=== PATIENT | male | born 1980 | race Caucasian/White ===

== ENCOUNTER 2018-05-10 23:36 | Inpatient (IN) ==
[2018-05-11] MEDS ORDERED: VANCOMYCIN INJ 1,000 MG in SODIUM CHLORIDE 0.9% 250 ML IV STA (00:31)
[2018-05-11] MEDS ORDERED: SODIUM CHLORIDE 0.9% 1,000 ML IV STA (00:31)
[2018-05-11 01:21] LABS: Basophils % 0.2 % (0.0-0.8); Eosinophils # 0.1 10*3/uL (0.0-0.87); Eosinophils % 0.4 % (0.00-10.9); Hematocrit 33.2 VOL% (42.0-52.0); Hemoglobin 10.8 GM/DL (14.0-18.0); Immature Granulocytes % 0.7 %; Lymphocytes # 1.7 10*3/uL (1.4-4.0); Lymphocytes % 12.2 % (21.2-54.2); Mean Corpuscular HGB Conc 32.5 GM/DL (32-36); Mean Corpuscular Hemoglobin 29 PG (27-34); Mean Corpuscular Volume 87.8 FL (87-102); Mean Platelet Volume 9.7 FL (9.6-12.0); Monocytes # 0.6 10*3/uL (0.11-0.8); Monocytes % 3.9 % (1.7-12.7); Neutrophils # 11.8 10*3/uL (1.4-7.4); Neutrophils % 82.6 % (38.7-73.9); Platelet Count 278 T/CUMM (130-400); Red Blood Count 3.78 MC/CUMM (3.8-5.5); Red Cell Distribution Width 16.1 % (9.3-17.3); White Blood Count 14.2 T/CUMM (4-12)
[2018-05-11 01:26] LABS: Alanine Aminotransferase 16 U/L (16-61); Alkaline Phosphatase 135 U/L (45-117); Aspartate Amino Transferase 15 U/L (0-37); Bilirubin,Total < 0.39 MG/DL (0.2-1.0); Blood Urea Nitrogen 8 MG/DL (7-18); Calcium 9.2 MG/DL (8.5-10.1); Glucose 434 MG/DL (74-106); Lactic Acid 2.4 MMOL/L (0.4-2.0); Osmolality,Calculated 280.5 MOS/KG (273-304); Sodium 132 MMOL/L (136-145); Total Protein 8.5 G/DL (6.4-8.3)
[2018-05-11 01:30] LABS: Potassium 2.2 MMOL/L (3.5-5.1)
[2018-05-11] MEDS ORDERED: POTASSIUM CHLORIDE 20 MEQ TABLET PO STA (01:33)
[2018-05-11] MEDS ORDERED: POTASSIUM CHLORIDE RIDER 10 MEQ in PREMIX 1 EACH IV ONE (01:33)
[2018-05-11] MEDS ORDERED: INSULIN REGULAR 100 UNIT/ML IV STA (01:36)
[2018-05-11] MEDS ORDERED: ONDANSETRON 4 MG/2 ML VIAL IV STA (01:36)
[2018-05-11] MEDS ORDERED: HYDROmorphone 2 MG/1 ML VIAL IV ONE (01:36)
[2018-05-11] MEDS ORDERED: SODIUM CHLORIDE 0.9% 1,550 ML IV ONE (01:37)
[2018-05-11 01:57] LABS: Apearance,Urine CLEAR (Clear); Bilirubin,Urine Negative (Negative); Blood, Urine Moderate mg/dL (Negative); Glucose,Urine (UA) >=500 mg/dL (Negative); Ketones,Urine Negative (Negative); Nitrite,Urine Negative (Negative); Protein,Urine 100 MG/DL; RBC,Urine 4 /HPF (0-4); Urine Color Straw (Yellow); Urine Specific Gravity 1.013 (1.001-1.035); Urine Urobilinogen < 2.0 EU/DL (0.2-1.0); WBC,Urine 14 /HPF (0-6)
[2018-05-11] MEDS ORDERED: SODIUM CHLORIDE 0.9% 1,000 ML IV SCH (02:00)
[2018-05-11 02:04] LABS: INR 0.9; PT Patient Result 9.4 SECS; Partial Thromboplastin Time 25.8 SECS (0-40)
[2018-05-11] MEDS ORDERED: DEXTROSE 50% 25 GM/50 ML VIAL IV PRN (02:11)
[2018-05-11] MEDS ORDERED: GLUCAGON 1 MG VIAL IM PRN ×2 (02:11)
[2018-05-11] MEDS ORDERED: ONDANSETRON 4 MG/2 ML VIAL IV PRN (02:11)
[2018-05-11 02:13] LABS: Barbiturates Screen,Urine Negative (Negative); Benzodiazepines Screen,Urine Negative (Negative); Cannabinoid Screen,Urine Positive (Negative); Opiate Screen,Urine Positive (Negative); Phencyclidine Screen,Urine Negative (Negative)
[2018-05-11] MEDS: fentaNYL 50 MCG/HR PATCH TRANSDERM SCH (05:10)
[2018-05-11] MEDS: SODIUM CHLORIDE 0.9% 1,000 ML IV SCH ×2 (05:12→15:08)
[2018-05-11] MEDS: HYDROmorphone 2 MG/1 ML VIAL IV PRN ×4 (05:12→18:58)
[2018-05-11 07:32] LABS: Albumin 2.2 G/DL (3.4-5.0); Bilirubin,Total 0.5 MG/DL (0.2-1.0); Calcium 7.7 MG/DL (8.5-10.1); Osmolality,Calculated 280.7 MOS/KG (273-304); Total Protein 5.7 G/DL (6.4-8.3)
[2018-05-11 07:37] LABS: Potassium 2.5 MMOL/L (3.5-5.1)
[2018-05-11] MEDS: DRONABINOL 2.5 MG CAPSULE PO SCH ×3 (09:08→17:30)
[2018-05-11] MEDS: POTASSIUM CHLORIDE 20 MEQ TABLET PO PRN ×4 (09:09→19:22)
[2018-05-11] MEDS: HYDROmorphone 2 MG TABLET PO SCH ×2 (09:09→21:56)
[2018-05-11] MEDS: INSULIN REGULAR 100 UNIT/ML SUBCUT SCH ×4 (09:10→21:56)
[2018-05-11] MEDS: ENOXAPARIN 40 MG/0.4 ML SYRINGE SUBCUT SCH (09:10)
[2018-05-11 10:44] LABS: Basophils % 0.1 % (0.0-0.8); Eosinophils % 0.4 % (0.00-10.9); Hematocrit 23.3 VOL% (42.0-52.0); Immature Granulocytes % 0.7 %; Immature Granulocytes Absolute 0.07 #; Lymphocytes # 1.5 10*3/uL (1.4-4.0); Lymphocytes % 13.6 % (21.2-54.2); Mean Corpuscular HGB Conc 34.3 GM/DL (32-36); Mean Corpuscular Hemoglobin 29 PG (27-34); Mean Corpuscular Volume 85.3 FL (87-102); Mean Platelet Volume 10.2 FL (9.6-12.0); Monocytes # 0.6 10*3/uL (0.11-0.8); Monocytes % 5.5 % (1.7-12.7); Neutrophils # 8.6 10*3/uL (1.4-7.4); Neutrophils % 79.7 % (38.7-73.9); Platelet Count 179 T/CUMM (130-400); Red Blood Count 2.73 MC/CUMM (3.8-5.5); Red Cell Distribution Width 16.3 % (9.3-17.3); White Blood Count 10.7 T/CUMM (4-12)
[2018-05-11] MEDS: LOSARTAN 50 MG TABLET PO SCH (11:37)
[2018-05-11] MEDS: VANCOMYCIN INJ 750 MG in SODIUM CHLORIDE 0.9% 250 ML IV SCH (15:14)
[2018-05-11] MEDS ORDERED: INSULIN GLARGINE 100 UNIT/ML SUBCUT SCH (21:00)
[2018-05-12 01:59] LABS: Basophils % 0.5 % (0.0-0.8); Eosinophils # 0.1 10*3/uL (0.0-0.87); Eosinophils % 0.6 % (0.00-10.9); Hematocrit 22.7 VOL% (42.0-52.0); Hemoglobin 7.3 GM/DL (14.0-18.0); Immature Granulocytes % 0.5 %; Immature Granulocytes Absolute 0.04 #; Lymphocytes % 26.1 % (21.2-54.2); Mean Corpuscular HGB Conc 32.2 GM/DL (32-36); Mean Corpuscular Hemoglobin 28 PG (27-34); Mean Corpuscular Volume 87.6 FL (87-102); Mean Platelet Volume 9.9 FL (9.6-12.0); Monocytes # 0.5 10*3/uL (0.11-0.8); Neutrophils # 5.2 10*3/uL (1.4-7.4); Neutrophils % 66.3 % (38.7-73.9); Platelet Count 169 T/CUMM (130-400); Red Blood Count 2.59 MC/CUMM (3.8-5.5); Red Cell Distribution Width 16.4 % (9.3-17.3); White Blood Count 7.8 T/CUMM (4-12)
[2018-05-12] MEDS: SODIUM CHLORIDE 0.9% 1,000 ML IV SCH ×3 (02:01→17:53)
[2018-05-12] MEDS: HYDROmorphone 2 MG/1 ML VIAL IV PRN ×5 (02:02→19:54)
[2018-05-12] MEDS: VANCOMYCIN INJ 750 MG in SODIUM CHLORIDE 0.9% 250 ML IV SCH ×3 (02:02→21:50)
[2018-05-12 02:13] LABS: Calcium 7.5 MG/DL (8.5-10.1); Osmolality,Calculated 279.4 MOS/KG (273-304); Potassium 2.9 MMOL/L (3.5-5.1)
[2018-05-12] MEDS ORDERED: POTASSIUM CHLORIDE RIDER 10 MEQ in PREMIX 1 EACH IV ONE (04:28)
[2018-05-12] MEDS ORDERED: POTASSIUM CHLORIDE 20 MEQ TABLET PO ONE (05:00)
[2018-05-12] MEDS: INSULIN REGULAR 100 UNIT/ML SUBCUT SCH ×4 (08:28→20:00)
[2018-05-12] MEDS: HYDROmorphone 2 MG TABLET PO SCH ×2 (08:28→21:47)
[2018-05-12] MEDS: DRONABINOL 2.5 MG CAPSULE PO SCH ×3 (08:28→17:50)
[2018-05-12] MEDS: ENOXAPARIN 40 MG/0.4 ML SYRINGE SUBCUT SCH (08:29)
[2018-05-12] MEDS: LOSARTAN 50 MG TABLET PO SCH (08:29)
[2018-05-12] MEDS: POTASSIUM CHLORIDE 20 MEQ TABLET PO PRN ×3 (08:34→19:53)
[2018-05-12] MEDS: CIPROFLOXACIN 500 MG TABLET PO SCH ×2 (13:14→20:00)
[2018-05-12] MEDS: INSULIN GLARGINE 100 UNIT/ML SUBCUT SCH (20:00)
[2018-05-13] MEDS: POTASSIUM CHLORIDE 20 MEQ TABLET PO PRN ×4 (00:01→15:24)
[2018-05-13] MEDS: HYDROmorphone 2 MG/1 ML VIAL IV PRN ×6 (00:42→21:59)
[2018-05-13 05:22] LABS: Basophils % 0.3 % (0.0-0.8); Eosinophils % 0.6 % (0.00-10.9); Hematocrit 23.9 VOL% (42.0-52.0); Hemoglobin 7.6 GM/DL (14.0-18.0); Immature Granulocytes % 0.5 %; Immature Granulocytes Absolute 0.03 #; Lymphocytes # 1.7 10*3/uL (1.4-4.0); Lymphocytes % 25.8 % (21.2-54.2); Mean Corpuscular HGB Conc 31.8 GM/DL (32-36); Mean Corpuscular Hemoglobin 28 PG (27-34); Mean Corpuscular Volume 89.2 FL (87-102); Mean Platelet Volume 10.1 FL (9.6-12.0); Monocytes # 0.5 10*3/uL (0.11-0.8); Monocytes % 7.7 % (1.7-12.7); Neutrophils # 4.2 10*3/uL (1.4-7.4); Neutrophils % 65.1 % (38.7-73.9); Platelet Count 187 T/CUMM (130-400); Red Blood Count 2.68 MC/CUMM (3.8-5.5); Red Cell Distribution Width 16.6 % (9.3-17.3); White Blood Count 6.4 T/CUMM (4-12)
[2018-05-13 05:46] LABS: Calcium 7.9 MG/DL (8.5-10.1); Osmolality,Calculated 275.4 MOS/KG (273-304); Potassium 3.4 MMOL/L (3.5-5.1)
[2018-05-13] MEDS: VANCOMYCIN INJ 750 MG in SODIUM CHLORIDE 0.9% 250 ML IV SCH ×3 (05:51→21:58)
[2018-05-13] MEDS: INSULIN REGULAR 100 UNIT/ML SUBCUT SCH ×4 (07:50→20:18)
[2018-05-13] MEDS: ENOXAPARIN 40 MG/0.4 ML SYRINGE SUBCUT SCH (08:58)
[2018-05-13] MEDS: DRONABINOL 2.5 MG CAPSULE PO SCH ×3 (08:58→16:29)
[2018-05-13] MEDS: CIPROFLOXACIN 500 MG TABLET PO SCH ×2 (08:58→20:17)
[2018-05-13] MEDS: LOSARTAN 50 MG TABLET PO SCH (08:58)
[2018-05-13] MEDS: HYDROmorphone 2 MG TABLET PO SCH ×2 (09:46→20:16)
[2018-05-13] MEDS: SODIUM CHLORIDE 0.9% 1,000 ML IV SCH ×2 (09:46→22:04)
[2018-05-13] MEDS: INSULIN GLARGINE 100 UNIT/ML SUBCUT SCH (20:17)
[2018-05-14] MEDS: HYDROmorphone 2 MG/1 ML VIAL IV PRN ×5 (01:20→18:17)
[2018-05-14] MEDS: fentaNYL 50 MCG/HR PATCH TRANSDERM SCH (04:50)
[2018-05-14] MEDS: VANCOMYCIN INJ 750 MG in SODIUM CHLORIDE 0.9% 250 ML IV SCH ×3 (05:08→21:56)
[2018-05-14 06:28] LABS: Basophils % 0.6 % (0.0-0.8); Eosinophils # 0.1 10*3/uL (0.0-0.87); Eosinophils % 1.3 % (0.00-10.9); Hemoglobin 8.5 GM/DL (14.0-18.0); Immature Granulocytes % 0.5 %; Immature Granulocytes Absolute 0.03 #; Lymphocytes # 2.1 10*3/uL (1.4-4.0); Lymphocytes % 33.5 % (21.2-54.2); Mean Corpuscular HGB Conc 31.5 GM/DL (32-36); Mean Corpuscular Hemoglobin 28 PG (27-34); Mean Corpuscular Volume 89.4 FL (87-102); Mean Platelet Volume 9.8 FL (9.6-12.0); Monocytes # 0.4 10*3/uL (0.11-0.8); Monocytes % 6.7 % (1.7-12.7); Neutrophils # 3.6 10*3/uL (1.4-7.4); Neutrophils % 57.4 % (38.7-73.9); Platelet Count 245 T/CUMM (130-400); Red Blood Count 3.02 MC/CUMM (3.8-5.5); Red Cell Distribution Width 16.9 % (9.3-17.3); White Blood Count 6.3 T/CUMM (4-12)
[2018-05-14 06:55] LABS: Calcium 8.1 MG/DL (8.5-10.1); Osmolality,Calculated 274.4 MOS/KG (273-304); Potassium 3.3 MMOL/L (3.5-5.1)
[2018-05-14] MEDS: HYDROmorphone 2 MG TABLET PO SCH ×2 (08:40→21:50)
[2018-05-14] MEDS: INSULIN REGULAR 100 UNIT/ML SUBCUT SCH ×5 (08:40→21:53)
[2018-05-14] MEDS: CIPROFLOXACIN 500 MG TABLET PO SCH ×2 (08:40→21:56)
[2018-05-14] MEDS: DRONABINOL 2.5 MG CAPSULE PO SCH ×3 (08:40→18:18)
[2018-05-14] MEDS: LOSARTAN 50 MG TABLET PO SCH (08:40)
[2018-05-14] MEDS: ENOXAPARIN 40 MG/0.4 ML SYRINGE SUBCUT SCH (08:41)
[2018-05-14] MEDS: INSULIN GLARGINE 100 UNIT/ML SUBCUT SCH (21:51)
[2018-05-15] MEDS: HYDROmorphone 2 MG/1 ML VIAL IV PRN ×6 (01:11→22:39)
[2018-05-15] MEDS: VANCOMYCIN INJ 750 MG in SODIUM CHLORIDE 0.9% 250 ML IV SCH ×2 (05:38→16:58)
[2018-05-15 06:30] LABS: Basophils % 0.5 % (0.0-0.8); Eosinophils # 0.1 10*3/uL (0.0-0.87); Eosinophils % 0.9 % (0.00-10.9); Hematocrit 27.9 VOL% (42.0-52.0); Immature Granulocytes % 0.9 %; Immature Granulocytes Absolute 0.05 #; Lymphocytes # 1.6 10*3/uL (1.4-4.0); Lymphocytes % 29.4 % (21.2-54.2); Mean Corpuscular HGB Conc 32.3 GM/DL (32-36); Mean Corpuscular Hemoglobin 28 PG (27-34); Mean Corpuscular Volume 87.5 FL (87-102); Mean Platelet Volume 9.4 FL (9.6-12.0); Monocytes # 0.5 10*3/uL (0.11-0.8); Monocytes % 8.3 % (1.7-12.7); Neutrophils # 3.3 10*3/uL (1.4-7.4); Platelet Count 287 T/CUMM (130-400); Red Blood Count 3.19 MC/CUMM (3.8-5.5); Red Cell Distribution Width 16.4 % (9.3-17.3); White Blood Count 5.5 T/CUMM (4-12)
[2018-05-15 06:56] LABS: Calcium 8.1 MG/DL (8.5-10.1); Osmolality,Calculated 273.4 MOS/KG (273-304); Potassium 3.7 MMOL/L (3.5-5.1)
[2018-05-15] MEDS: HYDROmorphone 2 MG TABLET PO SCH ×2 (08:40→21:38)
[2018-05-15] MEDS: INSULIN REGULAR 100 UNIT/ML SUBCUT SCH ×4 (09:30→21:39)
[2018-05-15] MEDS: DRONABINOL 2.5 MG CAPSULE PO SCH ×3 (09:31→16:58)
[2018-05-15] MEDS: CIPROFLOXACIN 500 MG TABLET PO SCH ×2 (09:31→21:39)
[2018-05-15] MEDS: LOSARTAN 50 MG TABLET PO SCH (09:31)
[2018-05-15] MEDS: ENOXAPARIN 40 MG/0.4 ML SYRINGE SUBCUT SCH (09:32)
[2018-05-15] MEDS: INSULIN GLARGINE 100 UNIT/ML SUBCUT SCH (21:39)
[2018-05-16] MEDS: HYDROmorphone 2 MG/1 ML VIAL IV PRN ×10 (02:34→21:58)
[2018-05-16] MEDS: VANCOMYCIN INJ 750 MG in SODIUM CHLORIDE 0.9% 250 ML IV SCH ×3 (02:34→17:13)
[2018-05-16 06:28] LABS: Basophils % 0.7 % (0.0-0.8); Eosinophils # 0.1 10*3/uL (0.0-0.87); Eosinophils % 2.3 % (0.00-10.9); Hematocrit 29.9 VOL% (42.0-52.0); Hemoglobin 9.5 GM/DL (14.0-18.0); Immature Granulocytes % 0.5 %; Immature Granulocytes Absolute 0.03 #; Lymphocytes # 2.3 10*3/uL (1.4-4.0); Lymphocytes % 42.1 % (21.2-54.2); Mean Corpuscular HGB Conc 31.8 GM/DL (32-36); Mean Corpuscular Hemoglobin 28 PG (27-34); Mean Corpuscular Volume 87.7 FL (87-102); Monocytes # 0.4 10*3/uL (0.11-0.8); Monocytes % 7.2 % (1.7-12.7); Neutrophils # 2.6 10*3/uL (1.4-7.4); Neutrophils % 47.2 % (38.7-73.9); Platelet Count 361 T/CUMM (130-400); Red Blood Count 3.41 MC/CUMM (3.8-5.5); Red Cell Distribution Width 16.4 % (9.3-17.3); White Blood Count 5.5 T/CUMM (4-12)
[2018-05-16] MEDS: LOSARTAN 50 MG TABLET PO SCH ×2 (06:39→10:11)
[2018-05-16 06:44] LABS: Calcium 8.8 MG/DL (8.5-10.1); Osmolality,Calculated 275.5 MOS/KG (273-304)
[2018-05-16] MEDS ORDERED: LACTATED RINGERS 1,000 ML IV SCH (08:00)
[2018-05-16] MEDS ORDERED: GLUCAGON 1 MG VIAL IM PRN (08:56)
[2018-05-16] MEDS ORDERED: DEXTROSE 50% 25 GM/50 ML VIAL IV PRN (08:56)
[2018-05-16] MEDS ORDERED: ONDANSETRON 4 MG/2 ML VIAL IV PRN (09:05)
[2018-05-16] MEDS ORDERED: ONDANSETRON 4 MG/2 ML VIAL ONE (09:08)
[2018-05-16] MEDS ORDERED: MIDAZOLAM 2 MG/2 ML VIAL ONE (09:08)
[2018-05-16] MEDS ORDERED: PROPOFOL 200 MG/20 ML VIAL IV ONE (09:08)
[2018-05-16] MEDS ORDERED: SEVOFLURANE 1 UNIT/15 MINUTE INH ONE (09:08)
[2018-05-16] MEDS ORDERED: fentaNYL 100 MCG/2 ML VIAL ONE (09:08)
[2018-05-16] MEDS ORDERED: HYDROmorphone 2 MG/1 ML VIAL ONE (09:08)
[2018-05-16] MEDS ORDERED: PHENYLEPHRINE 1 MG/10 ML SYRINGE IV ONE (09:08)
[2018-05-16] MEDS ORDERED: SUCCINYLCHOLINE 200 MG/10 ML VIAL ONE (09:09)
[2018-05-16] MEDS: INSULIN REGULAR 100 UNIT/ML SUBCUT SCH ×4 (09:37→21:58)
[2018-05-16] MEDS: HYDROmorphone 2 MG TABLET PO SCH ×2 (09:59→20:28)
[2018-05-16] MEDS: CIPROFLOXACIN 500 MG TABLET PO SCH ×2 (10:00→20:28)
[2018-05-16] MEDS: ENOXAPARIN 40 MG/0.4 ML SYRINGE SUBCUT SCH (10:00)
[2018-05-16] MEDS: DRONABINOL 2.5 MG CAPSULE PO SCH ×3 (10:00→17:12)
[2018-05-16] MEDS: amLODIPine 5 MG TABLET PO SCH (15:41)
[2018-05-16] MEDS: KETOROLAC 15 MG/1 ML VIAL IV SCH ×2 (15:42→20:31)
[2018-05-16 17:27] LABS: Ferritin 56.3 ng/ml (26-388)
[2018-05-16] MEDS: INSULIN GLARGINE 100 UNIT/ML SUBCUT SCH (20:28)
[2018-05-17] MEDS: HYDROmorphone 2 MG/1 ML VIAL IV PRN ×5 (01:24→22:48)
[2018-05-17] MEDS: VANCOMYCIN INJ 750 MG in SODIUM CHLORIDE 0.9% 250 ML IV SCH ×3 (01:25→16:50)
[2018-05-17] MEDS: fentaNYL 50 MCG/HR PATCH TRANSDERM SCH (04:00)
[2018-05-17] MEDS: KETOROLAC 15 MG/1 ML VIAL IV SCH ×4 (04:00→20:52)
[2018-05-17 06:44] LABS: Basophils # 0.1 10*3/uL (0.0-0.2); Basophils % 0.8 % (0.0-0.8); Eosinophils # 0.2 10*3/uL (0.0-0.87); Eosinophils % 2.3 % (0.00-10.9); Hematocrit 28.3 VOL% (42.0-52.0); Hemoglobin 8.9 GM/DL (14.0-18.0); Immature Granulocytes % 0.5 %; Immature Granulocytes Absolute 0.03 #; Lymphocytes # 2.1 10*3/uL (1.4-4.0); Lymphocytes % 31.2 % (21.2-54.2); Mean Corpuscular HGB Conc 31.4 GM/DL (32-36); Mean Corpuscular Hemoglobin 28 PG (27-34); Monocytes # 0.5 10*3/uL (0.11-0.8); Monocytes % 7.6 % (1.7-12.7); Neutrophils # 3.8 10*3/uL (1.4-7.4); Neutrophils % 57.6 % (38.7-73.9); Platelet Count 348 T/CUMM (130-400); Red Blood Count 3.18 MC/CUMM (3.8-5.5); Red Cell Distribution Width 16.6 % (9.3-17.3); White Blood Count 6.6 T/CUMM (4-12)
[2018-05-17 07:26] LABS: Risk Ratio 2.13; Thyroid Stimulating Hormone 1.44 uIU/ml (0.358-3.74); VLDL CHOLESTEROL 26.2 MG/DL
[2018-05-17] MEDS: CIPROFLOXACIN 500 MG TABLET PO SCH ×2 (09:08→20:51)
[2018-05-17] MEDS: amLODIPine 5 MG TABLET PO SCH (09:08)
[2018-05-17] MEDS: INSULIN REGULAR 100 UNIT/ML SUBCUT SCH ×4 (09:08→20:57)
[2018-05-17] MEDS: HYDROmorphone 2 MG TABLET PO SCH ×2 (09:08→20:49)
[2018-05-17] MEDS: ENOXAPARIN 40 MG/0.4 ML SYRINGE SUBCUT SCH (09:09)
[2018-05-17] MEDS: LOSARTAN 50 MG TABLET PO SCH (09:09)
[2018-05-17] MEDS: DRONABINOL 2.5 MG CAPSULE PO SCH ×3 (09:30→16:50)
[2018-05-17] MEDS ORDERED: DOCUSATE SODIUM 100 MG CAPSULE PO PRN (14:37)
[2018-05-17] MEDS: IRON (CARBONYL) 45 MG TABLET PO SCH ×2 (14:50→20:51)
[2018-05-17] MEDS: INSULIN GLARGINE 100 UNIT/ML SUBCUT SCH (20:51)
[2018-05-18] MEDS: KETOROLAC 15 MG/1 ML VIAL IV SCH ×4 (02:48→22:51)
[2018-05-18] MEDS: HYDROmorphone 2 MG/1 ML VIAL IV PRN ×4 (05:36→19:11)
[2018-05-18] MEDS: DEXTROSE 50% 25 GM/50 ML VIAL IV PRN ×2 (07:23→09:25)
[2018-05-18] MEDS: INSULIN REGULAR 100 UNIT/ML SUBCUT SCH ×4 (08:33→20:53)
[2018-05-18] MEDS: DRONABINOL 2.5 MG CAPSULE PO SCH ×3 (08:36→17:34)
[2018-05-18] MEDS ORDERED: VANCOMYCIN INJ 750 MG in SODIUM CHLORIDE 0.9% 250 ML IV SCH (09:00)
[2018-05-18] MEDS ORDERED: DEXTROSE 50% 25 GM/50 ML VIAL IV ONE (09:18)
[2018-05-18] MEDS ORDERED: DEXTROSE 50% 25 GM/50 ML VIAL IV PRN (10:35)
[2018-05-18] MEDS ORDERED: GLUCAGON 1 MG VIAL IM PRN (10:35)
[2018-05-18] MEDS ORDERED: PROPOFOL 200 MG/20 ML VIAL IV ONE (10:51)
[2018-05-18] MEDS ORDERED: ACETAMINOPHEN 1,000 MG/100 ML VIAL IV ONE (10:52)
[2018-05-18] MEDS ORDERED: fentaNYL 100 MCG/2 ML VIAL ONE (10:52)
[2018-05-18] MEDS ORDERED: KETOROLAC 30 MG/1 ML VIAL ONE (10:52)
[2018-05-18] MEDS ORDERED: MIDAZOLAM 2 MG/2 ML VIAL ONE (10:52)
[2018-05-18] MEDS ORDERED: SEVOFLURANE 1 UNIT/15 MINUTE INH ONE (10:52)
[2018-05-18] MEDS ORDERED: SUCCINYLCHOLINE 200 MG/10 ML VIAL ONE (10:53)
[2018-05-18] MEDS ORDERED: ONDANSETRON 4 MG/2 ML VIAL ONE (10:53)
[2018-05-18] MEDS: CIPROFLOXACIN 500 MG TABLET PO SCH ×2 (11:19→20:52)
[2018-05-18] MEDS: LOSARTAN 50 MG TABLET PO SCH (11:20)
[2018-05-18] MEDS: amLODIPine 5 MG TABLET PO SCH (11:20)
[2018-05-18] MEDS: HYDROmorphone 2 MG TABLET PO SCH ×2 (11:20→20:52)
[2018-05-18] MEDS: IRON (CARBONYL) 45 MG TABLET PO SCH ×2 (11:20→20:52)
[2018-05-18] MEDS: ENOXAPARIN 40 MG/0.4 ML SYRINGE SUBCUT SCH (11:23)
[2018-05-18 12:54] LABS: Apearance,Urine CLEAR (Clear); Bilirubin,Urine Negative (Negative); Blood, Urine Negative (Negative); Glucose,Urine (UA) 50 mg/dL (Negative); Ketones,Urine Negative (Negative); Mucus,Urine Occasional /LPF (Occasional); Nitrite,Urine Negative (Negative); Protein,Urine 30 MG/DL; RBC,Urine 2 /HPF (0-4); Urine Color Straw (Yellow); Urine Specific Gravity 1.009 (1.001-1.035); Urine Urobilinogen < 2.0 EU/DL (0.2-1.0); WBC,Urine 2 /HPF (0-6)
[2018-05-18] MEDS: INSULIN GLARGINE 100 UNIT/ML SUBCUT SCH (20:54)
[2018-05-19] MEDS: HYDROmorphone 2 MG/1 ML VIAL IV PRN ×7 (00:28→21:46)
[2018-05-19] MEDS: KETOROLAC 15 MG/1 ML VIAL IV SCH ×4 (05:38→23:58)
[2018-05-19 05:40] LABS: Basophils % 0.5 % (0.0-0.8); Eosinophils # 0.2 10*3/uL (0.0-0.87); Eosinophils % 2.6 % (0.00-10.9); Hematocrit 23.4 VOL% (42.0-52.0); Hemoglobin 7.2 GM/DL (14.0-18.0); Immature Granulocytes % 0.5 %; Immature Granulocytes Absolute 0.03 #; Lymphocytes % 30.5 % (21.2-54.2); Mean Corpuscular HGB Conc 30.8 GM/DL (32-36); Mean Corpuscular Hemoglobin 28 PG (27-34); Mean Corpuscular Volume 89.3 FL (87-102); Mean Platelet Volume 8.8 FL (9.6-12.0); Monocytes # 0.4 10*3/uL (0.11-0.8); Monocytes % 5.7 % (1.7-12.7); Neutrophils # 3.9 10*3/uL (1.4-7.4); Neutrophils % 60.2 % (38.7-73.9); Platelet Count 308 T/CUMM (130-400); Red Blood Count 2.62 MC/CUMM (3.8-5.5); Red Cell Distribution Width 16.7 % (9.3-17.3); White Blood Count 6.5 T/CUMM (4-12)
[2018-05-19 05:50] LABS: Calcium 8.1 MG/DL (8.5-10.1); Osmolality,Calculated 285.8 MOS/KG (273-304)
[2018-05-19] MEDS: INSULIN REGULAR 100 UNIT/ML SUBCUT SCH ×5 (08:00→20:48)
[2018-05-19] MEDS: DRONABINOL 2.5 MG CAPSULE PO SCH ×3 (09:00→18:20)
[2018-05-19] MEDS: ENOXAPARIN 40 MG/0.4 ML SYRINGE SUBCUT SCH (10:35)
[2018-05-19] MEDS ORDERED: SODIUM CHLORIDE 0.9% 1,000 ML IV PRN ×2 (11:17→16:48)
[2018-05-19] MEDS: LOSARTAN 50 MG TABLET PO SCH (11:46)
[2018-05-19] MEDS: IRON (CARBONYL) 45 MG TABLET PO SCH ×2 (11:47→20:48)
[2018-05-19] MEDS: CIPROFLOXACIN 500 MG TABLET PO SCH ×2 (11:47→20:48)
[2018-05-19] MEDS: HYDROmorphone 2 MG TABLET PO SCH ×2 (11:51→20:46)
[2018-05-19] MEDS: amLODIPine 5 MG TABLET PO SCH ×2 (20:03→20:47)
[2018-05-19] MEDS: INSULIN GLARGINE 100 UNIT/ML SUBCUT SCH (20:49)
[2018-05-20] MEDS: HYDROmorphone 2 MG/1 ML VIAL IV PRN ×7 (00:59→21:38)
[2018-05-20 04:22] LABS: Basophils % 0.4 % (0.0-0.8); Eosinophils # 0.1 10*3/uL (0.0-0.87); Eosinophils % 1.8 % (0.00-10.9); Hematocrit 28.8 VOL% (42.0-52.0); Hemoglobin 9.3 GM/DL (14.0-18.0); Immature Granulocytes % 0.3 %; Immature Granulocytes Absolute 0.02 #; Lymphocytes # 1.9 10*3/uL (1.4-4.0); Lymphocytes % 26.4 % (21.2-54.2); Mean Corpuscular HGB Conc 32.3 GM/DL (32-36); Mean Corpuscular Hemoglobin 28 PG (27-34); Mean Corpuscular Volume 87.8 FL (87-102); Mean Platelet Volume 8.4 FL (9.6-12.0); Monocytes # 0.4 10*3/uL (0.11-0.8); Monocytes % 5.7 % (1.7-12.7); Neutrophils # 4.7 10*3/uL (1.4-7.4); Neutrophils % 65.4 % (38.7-73.9); Platelet Count 306 T/CUMM (130-400); Red Blood Count 3.28 MC/CUMM (3.8-5.5); Red Cell Distribution Width 16.3 % (9.3-17.3); White Blood Count 7.2 T/CUMM (4-12)
[2018-05-20] MEDS: fentaNYL 50 MCG/HR PATCH TRANSDERM SCH (04:38)
[2018-05-20 04:53] LABS: Calcium 8.3 MG/DL (8.5-10.1); Osmolality,Calculated 282.5 MOS/KG (273-304); Potassium 4.3 MMOL/L (3.5-5.1)
[2018-05-20] MEDS: KETOROLAC 15 MG/1 ML VIAL IV SCH ×4 (05:53→23:31)
[2018-05-20 06:08] LABS: Eosinophils 1 % (0-10); Lymphocytes 29 % (20-55); Platelet Estimate Normal; Segmented Neutrophils 69 % (50-85); Total Cells Counted 100
[2018-05-20] MEDS: INSULIN REGULAR 100 UNIT/ML SUBCUT SCH ×4 (09:25→20:28)
[2018-05-20] MEDS: HYDROmorphone 2 MG TABLET PO SCH ×2 (09:26→20:27)
[2018-05-20] MEDS: LOSARTAN 50 MG TABLET PO SCH (09:26)
[2018-05-20] MEDS: DRONABINOL 2.5 MG CAPSULE PO SCH ×3 (09:27→17:55)
[2018-05-20] MEDS: IRON (CARBONYL) 45 MG TABLET PO SCH ×2 (09:27→20:28)
[2018-05-20] MEDS: ENOXAPARIN 40 MG/0.4 ML SYRINGE SUBCUT SCH (09:27)
[2018-05-20] MEDS: CIPROFLOXACIN 500 MG TABLET PO SCH (09:27)
[2018-05-20] MEDS: amLODIPine 5 MG TABLET PO SCH ×2 (09:29→20:28)
[2018-05-20] MEDS ORDERED: INSULIN GLARGINE 100 UNIT/ML SUBCUT SCH (13:23)
[2018-05-20] MEDS: CIPROFLOXACIN INJ 400 MG in PREMIX 1 EACH IV SCH (14:47)
[2018-05-21] MEDS: HYDROmorphone 2 MG/1 ML VIAL IV PRN ×7 (00:57→22:13)
[2018-05-21] MEDS: CIPROFLOXACIN INJ 400 MG in PREMIX 1 EACH IV SCH ×2 (00:58→14:36)
[2018-05-21] MEDS: KETOROLAC 15 MG/1 ML VIAL IV SCH ×2 (05:06→13:09)
[2018-05-21] MEDS: HYDROmorphone 2 MG TABLET PO SCH ×2 (08:56→21:15)
[2018-05-21] MEDS: LOSARTAN 50 MG TABLET PO SCH (08:57)
[2018-05-21] MEDS: ENOXAPARIN 40 MG/0.4 ML SYRINGE SUBCUT SCH (08:57)
[2018-05-21] MEDS: DRONABINOL 2.5 MG CAPSULE PO SCH ×3 (08:57→16:06)
[2018-05-21] MEDS: IRON (CARBONYL) 45 MG TABLET PO SCH ×2 (08:57→21:15)
[2018-05-21] MEDS: INSULIN REGULAR 100 UNIT/ML SUBCUT SCH ×4 (08:57→21:15)
[2018-05-21] MEDS: amLODIPine 5 MG TABLET PO SCH ×2 (08:57→21:15)
[2018-05-21] MEDS: DEXTROSE 50% 25 GM/50 ML VIAL IV PRN (11:24)
[2018-05-21] MEDS ORDERED: LACTULOSE 20 GM/30 ML UDCUP PO PRN (16:45)
[2018-05-21] MEDS ORDERED: LOSARTAN 50 MG TABLET PO ONE (17:30)
[2018-05-22] MEDS: HYDROmorphone 2 MG/1 ML VIAL IV PRN ×7 (01:14→22:07)
[2018-05-22] MEDS: CIPROFLOXACIN INJ 400 MG in PREMIX 1 EACH IV SCH ×2 (01:15→12:34)
[2018-05-22] MEDS: HYDROmorphone 2 MG TABLET PO SCH ×2 (09:38→20:02)
[2018-05-22] MEDS: DRONABINOL 2.5 MG CAPSULE PO SCH ×3 (09:38→17:35)
[2018-05-22] MEDS: PANTOPRAZOLE 40 MG TABLET PO SCH (09:38)
[2018-05-22] MEDS: IRON (CARBONYL) 45 MG TABLET PO SCH ×2 (09:38→20:02)
[2018-05-22] MEDS: LOSARTAN 50 MG TABLET PO SCH (09:38)
[2018-05-22] MEDS: amLODIPine 5 MG TABLET PO SCH ×2 (09:38→20:02)
[2018-05-22] MEDS: ENOXAPARIN 40 MG/0.4 ML SYRINGE SUBCUT SCH (09:39)
[2018-05-22] MEDS: INSULIN REGULAR 100 UNIT/ML SUBCUT SCH ×4 (09:39→21:14)
[2018-05-22] MEDS: CARVEDILOL 3.125 MG TABLET PO SCH ×2 (11:35→20:02)
[2018-05-22] MEDS: DEXTROSE 50% 25 GM/50 ML VIAL IV PRN (14:48)
[2018-05-22] MEDS ORDERED: INSULIN GLARGINE 100 UNIT/ML SUBCUT SCH (21:00)
[2018-05-23] MEDS: HYDROmorphone 2 MG/1 ML VIAL IV PRN ×3 (01:19→07:46)
[2018-05-23] MEDS: CIPROFLOXACIN INJ 400 MG in PREMIX 1 EACH IV SCH ×2 (01:49→13:57)
[2018-05-23] MEDS: fentaNYL 50 MCG/HR PATCH TRANSDERM SCH (04:13)
[2018-05-23] MEDS: INSULIN REGULAR 100 UNIT/ML SUBCUT SCH ×3 (09:39→16:14)
[2018-05-23] MEDS: PANTOPRAZOLE 40 MG TABLET PO SCH (09:40)
[2018-05-23] MEDS: DRONABINOL 2.5 MG CAPSULE PO SCH ×3 (09:40→19:47)
[2018-05-23] MEDS: amLODIPine 5 MG TABLET PO SCH (09:40)
[2018-05-23] MEDS: HYDROmorphone 2 MG TABLET PO SCH (09:40)
[2018-05-23] MEDS: LOSARTAN 50 MG TABLET PO SCH (09:41)
[2018-05-23] MEDS: CARVEDILOL 3.125 MG TABLET PO SCH (09:41)
[2018-05-23] MEDS: ENOXAPARIN 40 MG/0.4 ML SYRINGE SUBCUT SCH (09:41)
[2018-05-23] MEDS: IRON (CARBONYL) 45 MG TABLET PO SCH (09:48)
[2018-05-23] MEDS ORDERED: KETOROLAC 15 MG/1 ML VIAL IV PRN (10:24)
[2018-05-23] MEDS ORDERED: CARVEDILOL 3.125 MG TABLET PO ONE (10:50)
[2018-05-23] MEDS ORDERED: CARVEDILOL 6.25 MG TABLET PO ONE (11:00)
[2018-05-23 17:43] VITALS: BP 141/89
[2018-05-23] MEDS ORDERED: CARVEDILOL 12.5 MG TABLET PO SCH (21:00)
[2018-05-25 22:55] LABS: IgA Serum (MAYO) 648 mg/dL (61 - 356)
[2018-05-31 13:03] LABS: Tissue Transglutaminase IgA Ab < 1.2 U/mL
== END 2018-05-23 19:32 | disposition home health service (06) | DRG 580 ==
LOC: N.ED 23:36 → N.EDINP 05-11 02:11 → SUATTDRO 05-11 02:11 → N.5E 05-11 03:36
PROVIDERS: ADMIT Internal Medicine; ATTEND Internal Medicine

== ENCOUNTER 2018-07-29 12:41 | Inpatient (IN) ==
[2018-07-29] MEDS ORDERED: CLINDAMYCIN INJ 900 MG in PREMIX 1 EACH IV STA (14:01)
[2018-07-29] MEDS ORDERED: SODIUM CHLORIDE 0.9% 1,000 ML IV STA (14:01)
[2018-07-29 14:07] LABS: Basophils % 0.4 % (0.0-0.8); Eosinophils % 0.1 % (0.00-10.9); Hematocrit 30.4 VOL% (42.0-52.0); Hemoglobin 9.7 GM/DL (14.0-18.0); Immature Granulocytes % 0.4 %; Immature Granulocytes Absolute 0.03 #; Lymphocytes # 0.8 10*3/uL (1.4-4.0); Lymphocytes % 9.3 % (21.2-54.2); Mean Corpuscular HGB Conc 31.9 GM/DL (32-36); Mean Corpuscular Hemoglobin 28 PG (27-34); Mean Corpuscular Volume 86.6 FL (87-102); Mean Platelet Volume 9.4 FL (9.6-12.0); Monocytes # 0.4 10*3/uL (0.11-0.8); Monocytes % 4.5 % (1.7-12.7); Neutrophils # 6.9 10*3/uL (1.4-7.4); Neutrophils % 85.3 % (38.7-73.9); Platelet Count 214 T/CUMM (130-400); Red Blood Count 3.51 MC/CUMM (3.8-5.5); Red Cell Distribution Width 15.1 % (9.3-17.3); White Blood Count 8.1 T/CUMM (4-12)
[2018-07-29 14:24] LABS: Calcium 9.1 MG/DL (8.5-10.1); Osmolality,Calculated 287.2 MOS/KG (273-304); Potassium 4.2 MMOL/L (3.5-5.1)
[2018-07-29] MEDS ORDERED: MORPHINE 4 MG/1 ML VIAL IV STA (15:31)
[2018-07-29 15:43] LABS: ABG Base Excess -2.4 MMOL/L (-2.5-2.5); ABG HCO3 21.1 MMOL/L (20-26); ABG Oxygen Saturation 96.5 % (95-100); ABG PCO2 31.4 MM HG (35-48); ABG PH 7.445 (7.35-7.45); ABG PO2 100.4 MM HG (80-95); ABG TCO2 22.1 MMOL/L (23-27)
[2018-07-29 15:58] LABS: Apearance,Urine CLEAR (Clear); Bacteria,Urine Occasional /HPF (Few); Bilirubin,Urine Negative (Negative); Blood, Urine Moderate mg/dL (Negative); Glucose,Urine (UA) >=500 mg/dL (Negative); Ketones,Urine 80 mg/dL (Negative); Mucus,Urine Occasional /LPF (Occasional); Nitrite,Urine Negative (Negative); Protein,Urine 100 MG/DL; RBC,Urine 83 /HPF (0-4); Squamous Epithelial Cell,Urine Occasional /HPF (0-10); Urine Color Yellow (Yellow); Urine Urobilinogen < 2.0 EU/DL (0.2-1.0); WBC,Urine 3 /HPF (0-6)
[2018-07-29] MEDS ORDERED: PROMETHAZINE 25 MG/1 ML VIAL IM STA (16:18)
[2018-07-29] MEDS ORDERED: PROMETHAZINE 25 MG/1 ML VIAL ONE (16:19)
[2018-07-29] MEDS ORDERED: PROMETHAZINE 25 MG/1 ML VIAL IM PRN (17:18)
[2018-07-29] MEDS ORDERED: ACETAMINOPHEN 325 MG TABLET PO PRN (17:18)
[2018-07-29] MEDS ORDERED: GLUCAGON 1 MG VIAL IM PRN (17:29)
[2018-07-29] MEDS ORDERED: DEXTROSE 50% 25 GM/50 ML VIAL IV PRN (17:29)
[2018-07-29] MEDS ORDERED: HYDROmorphone 2 MG TABLET PO PRN (17:31)
[2018-07-29] MEDS ORDERED: PROMETHAZINE 25 MG/1 ML VIAL IV PRN (17:31)
[2018-07-29] MEDS ORDERED: POLYCARBOPHIL 625 MG TABLET PO PRN (17:31)
[2018-07-29] MEDS ORDERED: VANCOMYCIN INJ 1,250 MG in SODIUM CHLORIDE 0.9% 250 ML IV ONE (20:00)
[2018-07-29] MEDS: BACLOFEN 10 MG TABLET PO SCH (20:22)
[2018-07-29] MEDS: METOCLOPRAMIDE 10 MG TABLET PO SCH (20:23)
[2018-07-29] MEDS: RIVAROXABAN 20 MG TABLET PO SCH (20:23)
[2018-07-29] MEDS: INSULIN GLARGINE 100 UNIT/ML SUBCUT SCH (20:23)
[2018-07-29] MEDS: INSULIN REGULAR 100 UNIT/ML SUBCUT SCH (20:24)
[2018-07-29] MEDS: SODIUM CHLORIDE 0.9% 1,000 ML IV SCH (21:57)
[2018-07-29] MEDS: fentaNYL 100 MCG/HR PATCH TRANSDERM SCH (21:58)
[2018-07-29] MEDS: hydrALAZINE 20 MG/1 ML VIAL IV PRN (22:01)
[2018-07-29] MEDS: PROCHLORPERAZINE 10 MG TABLET PO PRN (22:05)
[2018-07-30] MEDS: PROCHLORPERAZINE 10 MG TABLET PO PRN ×2 (03:43→14:00)
[2018-07-30] MEDS: VANCOMYCIN INJ 1,000 MG in SODIUM CHLORIDE 0.9% 250 ML IV SCH ×2 (05:37→17:36)
[2018-07-30 06:43] LABS: Calcium 8.2 MG/DL (8.5-10.1); Osmolality,Calculated 282.5 MOS/KG (273-304); Potassium 3.9 MMOL/L (3.5-5.1)
[2018-07-30 07:21] LABS: Basophils % 0.6 % (0.0-0.8); Eosinophils # 0.1 10*3/uL (0.0-0.87); Eosinophils % 1.4 % (0.00-10.9); Hematocrit 24.7 VOL% (42.0-52.0); Hemoglobin 7.8 GM/DL (14.0-18.0); Immature Granulocytes % 0.7 %; Immature Granulocytes Absolute 0.05 #; Lymphocytes # 1.5 10*3/uL (1.4-4.0); Lymphocytes % 21.3 % (21.2-54.2); Mean Corpuscular HGB Conc 31.6 GM/DL (32-36); Mean Corpuscular Hemoglobin 28 PG (27-34); Mean Corpuscular Volume 87.3 FL (87-102); Mean Platelet Volume 9.8 FL (9.6-12.0); Monocytes # 0.6 10*3/uL (0.11-0.8); Monocytes % 8.5 % (1.7-12.7); Neutrophils # 4.8 10*3/uL (1.4-7.4); Neutrophils % 67.5 % (38.7-73.9); Platelet Count 195 T/CUMM (130-400); Red Blood Count 2.83 MC/CUMM (3.8-5.5); White Blood Count 7.1 T/CUMM (4-12)
[2018-07-30] MEDS: METOCLOPRAMIDE 10 MG TABLET PO SCH ×4 (08:48→17:42)
[2018-07-30] MEDS: BACLOFEN 10 MG TABLET PO SCH ×4 (08:48→21:16)
[2018-07-30] MEDS: RIVAROXABAN 20 MG TABLET PO SCH ×2 (08:49→10:43)
[2018-07-30] MEDS: INSULIN REGULAR 100 UNIT/ML SUBCUT SCH ×4 (08:53→21:17)
[2018-07-30] MEDS ORDERED: PROMETHAZINE INJ 12.5 MG in SODIUM CHLORIDE 0.9% 50 ML IV PRN (10:35)
[2018-07-30] MEDS ORDERED: metroNIDAZOLE INJ 750 MG in PREMIX 1 EACH IV ONE ×2 (10:56→13:00)
[2018-07-30] MEDS ORDERED: metroNIDAZOLE INJ 500 MG in PREMIX 1 EACH IV SCH (11:00)
[2018-07-30] MEDS ORDERED: CIPROFLOXACIN INJ 400 MG in PREMIX 1 EACH IV SCH (12:00)
[2018-07-30] MEDS: LIDOCAINE 5% PATCH TRANSDERM SCH (13:58)
[2018-07-30] MEDS: HYDROmorphone 2 MG TABLET PO PRN (14:01)
[2018-07-30] MEDS: PROMETHAZINE INJ 12.5 MG in SODIUM CHLORIDE 0.9% 50 ML IV PRN (15:50)
[2018-07-30] MEDS: INSULIN GLARGINE 100 UNIT/ML SUBCUT SCH (21:16)
[2018-07-30] MEDS: metroNIDAZOLE INJ 500 MG in PREMIX 1 EACH IV SCH (21:17)
[2018-07-31] MEDS: HYDROmorphone 2 MG TABLET PO PRN ×3 (02:52→23:30)
[2018-07-31] MEDS: PROMETHAZINE INJ 12.5 MG in SODIUM CHLORIDE 0.9% 50 ML IV PRN ×2 (02:53→21:12)
[2018-07-31 04:34] LABS: Basophils % 0.4 % (0.0-0.8); Eosinophils # 0.1 10*3/uL (0.0-0.87); Eosinophils % 1.2 % (0.00-10.9); Hematocrit 25.8 VOL% (42.0-52.0); Immature Granulocytes % 0.4 %; Immature Granulocytes Absolute 0.03 #; Lymphocytes # 1.1 10*3/uL (1.4-4.0); Lymphocytes % 14.5 % (21.2-54.2); Mean Corpuscular Hemoglobin 27 PG (27-34); Mean Corpuscular Volume 88.1 FL (87-102); Mean Platelet Volume 9.5 FL (9.6-12.0); Monocytes # 0.6 10*3/uL (0.11-0.8); Monocytes % 7.9 % (1.7-12.7); Neutrophils # 5.6 10*3/uL (1.4-7.4); Neutrophils % 75.6 % (38.7-73.9); Platelet Count 225 T/CUMM (130-400); Red Blood Count 2.93 MC/CUMM (3.8-5.5); Red Cell Distribution Width 15.2 % (9.3-17.3); White Blood Count 7.4 T/CUMM (4-12)
[2018-07-31 04:52] LABS: Calcium 8.5 MG/DL (8.5-10.1); Osmolality,Calculated 281.8 MOS/KG (273-304); Potassium 3.8 MMOL/L (3.5-5.1)
[2018-07-31] MEDS: metroNIDAZOLE INJ 500 MG in PREMIX 1 EACH IV SCH (05:41)
[2018-07-31] MEDS: SODIUM CHLORIDE 0.9% 1,000 ML IV SCH ×2 (05:42)
[2018-07-31] MEDS ORDERED: BUPIVACAINE MPF 0.25% 30 ML VIAL ONE (06:36)
[2018-07-31] MEDS ORDERED: ROPIVACAINE 0.5% 30 ML VIAL ONE (06:39)
[2018-07-31] MEDS ORDERED: MIDAZOLAM 2 MG/2 ML VIAL ONE (08:14)
[2018-07-31] MEDS ORDERED: PROPOFOL 200 MG/20 ML VIAL IV ONE (08:14)
[2018-07-31] MEDS ORDERED: SEVOFLURANE 1 UNIT/15 MINUTE INH ONE (08:14)
[2018-07-31] MEDS ORDERED: fentaNYL 100 MCG/2 ML VIAL ONE (08:15)
[2018-07-31] MEDS ORDERED: ROCURONIUM 100 MG/10 ML VIAL IV ONE (08:15)
[2018-07-31] MEDS ORDERED: LABETALOL 100 MG/20 ML VIAL IV ONE (08:15)
[2018-07-31] MEDS ORDERED: SUCCINYLCHOLINE 200 MG/10 ML VIAL ONE (08:15)
[2018-07-31] MEDS ORDERED: PHENYLEPHRINE 1 MG/10 ML SYRINGE IV ONE (08:15)
[2018-07-31] MEDS: INSULIN REGULAR 100 UNIT/ML SUBCUT SCH ×4 (09:16→21:13)
[2018-07-31] MEDS: LIDOCAINE 5% PATCH TRANSDERM SCH (09:39)
[2018-07-31] MEDS: METOCLOPRAMIDE 10 MG TABLET PO SCH ×3 (09:39→17:22)
[2018-07-31] MEDS: BACLOFEN 10 MG TABLET PO SCH ×3 (09:39→21:12)
[2018-07-31] MEDS: RIVAROXABAN 20 MG TABLET PO SCH ×2 (10:31→21:15)
[2018-07-31] MEDS: NAFCILLIN 2,000 MG in SODIUM CHLORIDE 0.9% 100 ML IV SCH ×2 (13:11→22:14)
[2018-07-31] MEDS ORDERED: PROMETHAZINE 25 MG TABLET PO ONE (13:25)
[2018-07-31] MEDS ORDERED: PROMETHAZINE 25 MG/1 ML VIAL IM ONE (13:35)
[2018-07-31] MEDS: fentaNYL 100 MCG/HR PATCH TRANSDERM SCH (15:15)
[2018-07-31] MEDS ORDERED: HYDROmorphone 2 MG TABLET PO ONE (16:53)
[2018-07-31] MEDS: INSULIN GLARGINE 100 UNIT/ML SUBCUT SCH (21:13)
[2018-08-01] MEDS: NAFCILLIN 2,000 MG in SODIUM CHLORIDE 0.9% 100 ML IV SCH ×5 (03:43→21:00)
[2018-08-01 04:04] LABS: Basophils % 0.5 % (0.0-0.8); Eosinophils # 0.1 10*3/uL (0.0-0.87); Eosinophils % 2.4 % (0.00-10.9); Immature Granulocytes % 0.8 %; Immature Granulocytes Absolute 0.05 #; Lymphocytes # 1.3 10*3/uL (1.4-4.0); Lymphocytes % 22.4 % (21.2-54.2); Mean Corpuscular HGB Conc 30.4 GM/DL (32-36); Mean Corpuscular Hemoglobin 27 PG (27-34); Mean Corpuscular Volume 87.5 FL (87-102); Mean Platelet Volume 8.9 FL (9.6-12.0); Monocytes # 0.4 10*3/uL (0.11-0.8); Monocytes % 7.1 % (1.7-12.7); Neutrophils % 66.8 % (38.7-73.9); Platelet Count 238 T/CUMM (130-400); Red Blood Count 2.63 MC/CUMM (3.8-5.5); Red Cell Distribution Width 15.3 % (9.3-17.3); White Blood Count 5.9 T/CUMM (4-12)
[2018-08-01 04:23] LABS: Calcium 8.2 MG/DL (8.5-10.1); Osmolality,Calculated 284.3 MOS/KG (273-304); Potassium 4.3 MMOL/L (3.5-5.1)
[2018-08-01] MEDS: HYDROmorphone 2 MG TABLET PO PRN ×4 (05:23→23:36)
[2018-08-01] MEDS: SODIUM CHLORIDE 0.9% 1,000 ML IV SCH (10:14)
[2018-08-01] MEDS: BACLOFEN 10 MG TABLET PO SCH ×3 (10:15→21:00)
[2018-08-01] MEDS: RIVAROXABAN 20 MG TABLET PO SCH ×2 (10:15→20:59)
[2018-08-01] MEDS: METOCLOPRAMIDE 10 MG TABLET PO SCH ×3 (10:16→17:28)
[2018-08-01] MEDS: INSULIN REGULAR 100 UNIT/ML SUBCUT SCH ×4 (10:16→21:25)
[2018-08-01] MEDS: LIDOCAINE 5% PATCH TRANSDERM SCH (10:17)
[2018-08-01] MEDS: PROCHLORPERAZINE 10 MG TABLET PO PRN (10:23)
[2018-08-01] MEDS: PROMETHAZINE INJ 12.5 MG in SODIUM CHLORIDE 0.9% 50 ML IV PRN (15:58)
[2018-08-01] MEDS: fentaNYL 100 MCG/HR PATCH TRANSDERM SCH (17:11)
[2018-08-01] MEDS: SODIUM HYPOCHLORITE 0.25% IRRIG 473 ML BOTTLE TOP SCH (17:28)
[2018-08-01] MEDS: INSULIN GLARGINE 100 UNIT/ML SUBCUT SCH (21:00)
[2018-08-02] MEDS: NAFCILLIN 2,000 MG in SODIUM CHLORIDE 0.9% 100 ML IV SCH ×7 (00:37→23:31)
[2018-08-02] MEDS: PROMETHAZINE INJ 12.5 MG in SODIUM CHLORIDE 0.9% 50 ML IV PRN ×2 (04:15→22:46)
[2018-08-02] MEDS: HYDROmorphone 2 MG TABLET PO PRN ×4 (05:36→23:57)
[2018-08-02] MEDS: SODIUM CHLORIDE 0.9% 1,000 ML IV SCH ×2 (05:50→21:41)
[2018-08-02] MEDS: INSULIN REGULAR 100 UNIT/ML SUBCUT SCH ×4 (09:37→21:41)
[2018-08-02] MEDS: BACLOFEN 10 MG TABLET PO SCH ×3 (09:38→21:40)
[2018-08-02] MEDS: RIVAROXABAN 20 MG TABLET PO SCH ×2 (09:38→21:40)
[2018-08-02] MEDS: LIDOCAINE 5% PATCH TRANSDERM SCH (09:38)
[2018-08-02] MEDS: METOCLOPRAMIDE 10 MG TABLET PO SCH ×3 (09:38→17:38)
[2018-08-02] MEDS: SODIUM HYPOCHLORITE 0.25% IRRIG 473 ML BOTTLE TOP SCH (09:39)
[2018-08-02 10:59] LABS: Basophils % 0.8 % (0.0-0.8); Eosinophils # 0.1 10*3/uL (0.0-0.87); Eosinophils % 2.8 % (0.00-10.9); Hematocrit 25.4 VOL% (42.0-52.0); Hemoglobin 7.8 GM/DL (14.0-18.0); Immature Granulocytes % 0.3 %; Immature Granulocytes Absolute 0.01 #; Lymphocytes # 1.2 10*3/uL (1.4-4.0); Lymphocytes % 30.8 % (21.2-54.2); Mean Corpuscular HGB Conc 30.7 GM/DL (32-36); Mean Corpuscular Hemoglobin 27 PG (27-34); Mean Corpuscular Volume 87.6 FL (87-102); Mean Platelet Volume 8.6 FL (9.6-12.0); Monocytes # 0.2 10*3/uL (0.11-0.8); Monocytes % 6.2 % (1.7-12.7); Neutrophils # 2.3 10*3/uL (1.4-7.4); Neutrophils % 59.1 % (38.7-73.9); Platelet Count 244 T/CUMM (130-400); Red Cell Distribution Width 14.8 % (9.3-17.3); White Blood Count 3.9 T/CUMM (4-12)
[2018-08-02 11:20] LABS: Calcium 8.1 MG/DL (8.5-10.1); Osmolality,Calculated 284.7 MOS/KG (273-304); Potassium 4.2 MMOL/L (3.5-5.1)
[2018-08-02] MEDS ORDERED: SODIUM CHLORIDE 0.9% 1,000 ML IV PRN (12:32)
[2018-08-02] MEDS: hydrALAZINE 20 MG/1 ML VIAL IV PRN (18:59)
[2018-08-02] MEDS: INSULIN GLARGINE 100 UNIT/ML SUBCUT SCH (21:41)
[2018-08-03] MEDS: SODIUM CHLORIDE 0.9% 1,000 ML IV SCH (04:11)
[2018-08-03] MEDS: NAFCILLIN 2,000 MG in SODIUM CHLORIDE 0.9% 100 ML IV SCH (04:11)
[2018-08-03] MEDS: HYDROmorphone 2 MG TABLET PO PRN ×2 (06:26→15:02)
[2018-08-03 07:14] LABS: Hematocrit 33.6 VOL% (42.0-52.0)
[2018-08-03 07:16] LABS: Hemoglobin 10.3 GM/DL (14.0-18.0)
[2018-08-03 07:20] LABS: Basophils # 0.1 10*3/uL (0.0-0.2); Basophils % 0.9 % (0.0-0.8); Eosinophils # 0.2 10*3/uL (0.0-0.87); Eosinophils % 2.6 % (0.00-10.9); Hematocrit 33.5 VOL% (42.0-52.0); Hemoglobin 10.3 GM/DL (14.0-18.0); Immature Granulocytes % 0.7 %; Immature Granulocytes Absolute 0.04 #; Lymphocytes # 1.9 10*3/uL (1.4-4.0); Lymphocytes % 32.2 % (21.2-54.2); Mean Corpuscular HGB Conc 30.7 GM/DL (32-36); Mean Corpuscular Hemoglobin 26 PG (27-34); Mean Corpuscular Volume 85.7 FL (87-102); Mean Platelet Volume 8.6 FL (9.6-12.0); Monocytes # 0.4 10*3/uL (0.11-0.8); Monocytes % 6.6 % (1.7-12.7); Neutrophils # 3.3 10*3/uL (1.4-7.4); Platelet Count 330 T/CUMM (130-400); Red Blood Count 3.91 MC/CUMM (3.8-5.5); Red Cell Distribution Width 18.4 % (9.3-17.3); White Blood Count 5.8 T/CUMM (4-12)
[2018-08-03 07:51] LABS: Calcium 8.3 MG/DL (8.5-10.1); Osmolality,Calculated 284.3 MOS/KG (273-304); Potassium 4.2 MMOL/L (3.5-5.1)
[2018-08-03] MEDS: INSULIN REGULAR 100 UNIT/ML SUBCUT SCH ×2 (07:55→12:24)
[2018-08-03] MEDS ORDERED: cefTRIAXone 2,000 MG in SYRINGE 1 EACH IV SCH (09:00)
[2018-08-03] MEDS: METOCLOPRAMIDE 10 MG TABLET PO SCH ×2 (09:48→12:25)
[2018-08-03] MEDS: BACLOFEN 10 MG TABLET PO SCH ×2 (09:48→15:02)
[2018-08-03] MEDS: LIDOCAINE 5% PATCH TRANSDERM SCH (09:48)
[2018-08-03] MEDS: RIVAROXABAN 20 MG TABLET PO SCH (09:48)
[2018-08-03] MEDS: SODIUM HYPOCHLORITE 0.25% IRRIG 473 ML BOTTLE TOP SCH (09:49)
[2018-08-03] MEDS: PROMETHAZINE INJ 12.5 MG in SODIUM CHLORIDE 0.9% 50 ML IV PRN (10:56)
[2018-08-03 11:58] VITALS: BP 134/74
== END 2018-08-03 15:57 | disposition home health service (06) | DRG 622 ==
LOC: N.ED 12:41 → N.EDINP 17:18 → N.2E 18:21
PROVIDERS: ADMIT Internal Medicine; ATTEND Internal Medicine